=== PATIENT | male | born 1965 | race Caucasian/White ===

== ENCOUNTER 2018-03-19 06:20 | Day surgery (SDC) | payer BC ==
[~2018-03-19] VITALS: Ht 170.9 cm; Wt 94.2 kg
[~2018-03-19 06:20] MED LIST: BUPIVAC MPF-EPI 0.5%-1:200000 30 ML VIAL. ONE
[2018-03-19] MEDS ORDERED: IV RINGERS,LACTATED 1000ML 1,000 ML IV SCH ×2 (06:45→06:57)
[2018-03-19] MEDS ORDERED: PROCHLORPERAZINE 10 MG/2 ML VIAL. IV PRN (07:00)
[2018-03-19] MEDS ORDERED: HYDROmorphone 2 MG/ML VIAL IV PRN (07:00)
[2018-03-19] MEDS ORDERED: fentaNYL PF VIAL 100 MCG/2 ML VIAL IV PRN (07:00)
[2018-03-19] MEDS ORDERED: MORPHINE SULFATE 2 MG/ML VIAL. IV PRN (07:00)
[2018-03-19] MEDS ORDERED: SCOPOLAMINE 1.5MG PATCH. TD ONE (07:00)
[2018-03-19] MEDS ORDERED: ONDANSETRON PF 4 MG/2 ML VIAL. IV PRN (07:00)
[2018-03-19] MEDS ORDERED: LIDOCAINE 1% PF 2 ML VIAL. ID PRN (07:00)
[2018-03-19] MEDS ORDERED: fentaNYL PF VIAL 100 MCG/2 ML VIAL ONE ×3 (07:15→10:32)
[2018-03-19] MEDS ORDERED: PROPOFOL 20 ML IV ONE (07:15)
[2018-03-19] MEDS ORDERED: ROCURONIUM 50 MG/5 ML VIAL. ONE (07:16)
[2018-03-19] MEDS ORDERED: SUCCINYLCHOLINE 200 MG/10 ML VIAL. ONE (07:16)
[2018-03-19] MEDS ORDERED: DEXAMETHASONE SOD PHOS 20 MG/5 ML VIAL. ONE (08:13)
[2018-03-19] MEDS ORDERED: ONDANSETRON PF 4 MG/2 ML VIAL. ONE (08:13)
[2018-03-19] MEDS ORDERED: diphenhydrAMINE 50 MG/ML VIAL ONE (08:45)
[2018-03-19] MEDS ORDERED: FAMOTIDINE 20 MG/2 ML VIAL ONE (08:45)
[2018-03-19] MEDS ORDERED: DESFLURANE 31 TO 60 MINUTES IH ONE (08:46)
[2018-03-19] MEDS ORDERED: GLYCOPYRROLATE 1 MG/5 ML VIAL. ONE (08:50)
[2018-03-19] MEDS ORDERED: NEOSTIGMINE METHYLSULFATE 5 MG/5 ML SYRINGE. ONE (08:51)
--- NOTE | 2018-03-19 09:10 | PDOC4 ---
Operative Note Operative Note Date: 03/19/2018 Preoperative diagnosis: Ventral hernia incarcerated Postoperative diagnosis: Same Procedure: Robotic-assisted laparoscopic ventral hernia repair with mesh Surgeon: Migel Specimen: None Dictation: Patient is a 52-year-old male is complaints of a bulge at his umbilicus he said for a number years and getting larger he does have some skin changes over this area and incarcerated omentum procedure of robotic-assisted laparoscopic ventral hernia repair with mesh was explained to the patient detail was benefits were also discussed including bleeding infection injury to intra-abdominal contents possibly necessitating further or open operations alternatives to this procedure also discussed with patient who seemed understanding gave both verbal and written consent to have the procedure performed. Patient was taken to the operating room placed in supine position general anesthesia was initiated once patient was asleep and intubated his abdomen was prepped and draped usual sterile fashion using ChloraPrep. Upper quadrant was injected with quarter percent Marcaine with epinephrine incisions made lead blade scalpel and a 5 mm Visiport was placed under direct visualization into the abdomen a pneumoperitoneum was created once this was complete 5 mm camera was placed within the abdomen and inspected no other at maladies were noted other than the ventral hernia with incarcerated omentum. At this point a da To port was placed in the left mid abdomen and a second da To port placed in the left lower abdomen the 5 mm Visiport was changed out for da To port that point the da To robot was brought in and docked all port sites surgeon went to the robotic console using grasper and Endo Abdi scissors the hernia contents were reduced and the hernia sac removed. The fascial defect was closed with a V lock 20 nonabsorbable suture. Bard ventral light ST mesh was then used to cover the hernia defect this was sewn into place with a running 20V lock absorbable suture. At this point the da To robot was undocked all ports removed the port incisions were closed with 40 septic or Monocryl mass all Steri-Strips and island dressings were applied. Patient was waken next made in the operating room taken recovery in stable condition all sponge instrument needle counts listed as correct estimate blood loss 5 mL CRISTIANA LESTER MD Mar 19, 2018 09:10
--- NOTE | 2018-03-19 09:11 | DISCH ---
DISCHARGE INSTRUCTIONS Condition on Discharge Condition on Discharge: Stable Activity After Discharge Activity Instructions for Disc: Avoid exertion Other activity instructions: no lifting more than 20 pounds for 2 weeks Diet after Discharge Diet after Discharge: Regular Wound Incision Care Other wound/incision instructi: a shower in 24 hours Contacting the DRMatilda after DC Call your doctor for: If your condition worsens Follow-Up Follow up with: Dr. Lester in 2 weeks CRISTIANA LESTER MD Mar 19, 2018 09:11
[2018-03-19] MEDS ORDERED: OXYC-323 PO (09:40)
[2018-03-19] MEDS: fentaNYL PF VIAL 100 MCG/2 ML VIAL IV PRN ×3 (10:10→10:36)
[2018-03-19] MEDS ORDERED: oxyCODONE/APAP 5/325 1 TAB TABLET PO ONE (11:00)
[2018-03-19 12:00] VITALS: BP 110/68
== END 2018-03-19 12:00 | disposition home or self-care (01) ==
LOC: SURG 06:20
PROVIDERS: ATTEND Surgery
DX: K43.6 Other and unspecified ventral hernia with obstruction, without gangrene (principal); Z98.890 Other specified postprocedural states; Z79.899 Other long term (current) drug therapy; Z83.3 Family history of diabetes mellitus; Z82.49 Family history of ischemic heart disease and other diseases of the circulatory system; Z80.8 Family history of malignant neoplasm of other organs or systems
CPT/HCPCS: 49653; C1781; J0330; J0690; J1100; J1200; J2405; J2704; J2710; J3010; J3490; J7120; S0028; S2900